=== PATIENT | female | born 1950 | race American Indian/Alaskan Native ===

== ENCOUNTER 2021-10-18 12:34 | Emergency (ER) | payer SELFPAY ==
--- NOTE | 2021-10-18 13:07 | Emergency Department Report ---
ED General Adult HPI - General Chief complaint: Weakness Stated complaint: REF BY DOC/WEAKNESS Time Seen by Provider: 10/18/21 12:53 Source: patient Mode of arrival: Ambulatory Limitations: No Limitations - History of Present Illness Initial comments: Patient presented with family secondary to generalized weakness. She had actually fallen on Monday. Patient is uncertain whether she slipped and fell or whether she fainted. She was in the kitchen. She was getting cup of ice when she fell. She states that she came to lying on the ground. She believes that she hit her head and was obviously knocked out. The cup of ice had spilled everywhere. Patient states that she crawled to their bedroom, and was able to call her . He came home and helped her get up. She states that she spent yesterday lying in bed. She was complaining of pain in the medial aspect of the right thigh. This was in the proximal area. She thought that she had just injured her leg. Unfortunately, she was not able to get up and move her leg. She states that her leg feels weak now. She called her [facility] physician and was told to come here that this could be a stroke. She states that she noticed this weakness yesterday and was told to come in yesterday. She and her decided to come in today instead. Patient has ongoing headache, although she states that the headache is improved. She denies chest pain. She has not noticed any weakness of the arms. Pain in the right medial thigh is described as aching. Severity scale (0 -10): 4 - Related Data Allergies Allergy/AdvReac Type Severity Reaction Status Date / Time cefdinir Allergy Itching Verified 10/18/21 13:12 ED Review of Systems ROS: Stated complaint: REF BY DOC/WEAKNESS Other details as noted in HPI Comment: All other systems reviewed and negative Constitutional: denies: fever Eyes: denies: vision change ENT: denies: throat pain Respiratory: denies: cough Cardiovascular: denies: chest pain Endocrine: denies: unexplained weight loss Gastrointestinal: denies: abdominal pain Genitourinary: denies: dysuria Musculoskeletal: denies: back pain Skin: denies: rash Neurological: as per HPI Hematological/Lymphatic: denies: easy bruising ED Past Medical Hx - Past Medical History Hx Hypertension: Yes - Family History Family history: hypertension ED Physical Exam - General Limitations: No Limitations, Other (Pulse ox noted and normal) General appearance: alert, in no apparent distress - Head Head exam: Present: atraumatic, normocephalic - Eye Eye exam: Present: normal appearance, EOMI. Absent: scleral icterus - ENT ENT exam: Present: normal orophraynx, normal external ear exam - Neck Neck exam: Present: normal inspection. Absent: tenderness, meningismus - Respiratory Respiratory exam: Present: normal lung sounds bilaterally. Absent: respiratory distress - Cardiovascular Cardiovascular Exam: Present: regular rate, normal rhythm - GI/Abdominal GI/Abdominal exam: Present: soft. Absent: distended, tenderness - Extremities Exam Extremities exam: Present: normal capillary refill - Back Exam Back exam: Absent: CVA tenderness (R) - Neurological Exam Neurological exam: Present: alert, oriented X3, CN II-XII intact, reflexes normal, other (Patient seems to have weakness involving the right leg at the hip flexor area. It is difficult to determine whether this is pain mediated or true weakness.) - Psychiatric Psychiatric exam: Present: normal affect, normal mood - Skin Skin exam: Present: warm, dry ED Course Vital Signs 10/18/21 10/18/21 12:54 14:05 Temperature 98.0 F Pulse Rate 98 H Respiratory 16 Rate Blood Pressure 117/45 [Left] O2 Sat by Pulse 98 98 Oximetry - Reevaluation(s) Reevaluation #1: 10/18/21 13:06 Labs, CT, and x-rays were ordered. Old records noted. Reevaluation #2: 10/18/21 14:26 EKG noted. Reevaluation #3: 10/18/21 15:41 Work-up was complete and the patient was discharged ED Medical Decision Making - Lab Data Result diagrams: 10/18/21 14:29 10/18/21 14:29 Rhythm strip: Normal sinus rhythm without ectopy. Monitor observe 10 seconds. - EKG Data -: EKG Interpreted by Me - EKG Data When compared to previous EKG there are: previous EKG unavailable 10/18/21 14:27 1421-EKG shows normal sinus rhythm at 74. Intervals are normal including QRS and QT corrected. The computer is reading a QRS of 135, but this is a narrow c omplex QRS. It is not wide. Patient does have significant artifact and wandering baseline. There is no old EKG for comparison. - Radiology Data Radiology results: report reviewed - Medical Decision Making Patient presents for a questionable stroke. She actually seemed to fall and get knocked out. There was no CT evidence of stroke. She did not have unilateral findings suggestive of stroke. Patient did not have focal weakness. She had complained that her right leg was weak but the seem to be more limited due to pain. She had pain in the musculature of the medial thigh on the right. She did not have any pronator drift. NIH score was zero. Along the same lines, there is no evidence of subdural or epidural hematoma. Has no evidence of spinal injury based on a negative CT of the C-spine. Patient does not have evid ence of pelvic fracture or hip fracture. She has no obvious metabolic derangement although her BUN was elevated. This would be consistent with some mild dehydration. She was drinking fluids here. The [facility] physician was notified who did agree with outpatient follow-up and will help arrange outp atient follow-up. Critical Care Time: No Critical care attestation.: If time is entered above; I have spent that time in minutes in the direct care o f this critically ill patient, excluding procedure time. ED Disposition Clinical Impression: Right thigh pain Syncope Qualifiers: Syncope type: unspecified Qualified Code(s): R55 - Syncope and collapse Disposition: 01 HOME / SELF CARE / HOMELESS Is pt being admited?: No Condition: Stable Instructions: Syncope (ED), How to Use Cold Therapy, [id number], Pain Without a Known Cause, Syncope Additional Instructions: Apply ice to your leg. Drink plenty water. Use Tylenol for pain. Follow-up with your family doctor and your [facility] doctor for recheck. Return for problems or concerns. Referrals: PRIMARY CARE, [Referring] - 3-5 Days
--- NOTE | 2021-10-18 13:50 | Cat Scan Report ---
CT head/brain wo con INDICATION: trauma w/loc. TECHNIQUE: Routine CT head. All CT scans at this location are performed using CT dose reduction for A NATHAN by means of automated exposure control. COMPARISON: None. FINDINGS: Intracranial: Taylor-white matter differentiation is maintained. No intracranial hemorrhage. No extra a xial collection. No hydrocephalus. No herniation. Sinuses: Paranasal sinuses and mastoid air cells are essentially clear. Orbits: Globes are intact. Calvarium: No acute fracture. IMPRESSION: 1. No acute intracranial abnormality. Signer Name: Simón Krishna MD Signed: 10/18/2021 1:45 PM Workstation Name: [id number]
--- NOTE | 2021-10-18 14:22 | XRay Report ---
CHEST 2 VIEWS INDICATION: fall. COMPARISON: None FINDINGS: SUPPORT DEVICES: None. HEART: Within normal limits. LUNGS/PLEURA: No acute air space or interstitial disease. No pneumothorax. ADDITIONAL FINDINGS: None. IMPRESSION: 1. No acute findings. Signer Name: Myron Martinez MD Signed: 10/18/2021 2:18 PM Workstation Name: [id number]
--- NOTE | 2021-10-18 14:24 | XRay Report ---
XR pelvis 1-2V INDICATION / CLINICAL INFORMATION: Fall. COMPARISON: None available. FINDINGS: Mild cortical deformity along the superior margin of the left pubic body most likely represents remot e fracture. No acute fracture is identified. The pubic symphysis and SI joints are intact. The sacrum is obscured by bowel gas and stool. Hip joints are intact with mild bilateral osteoarthritis. Signer Name: Shakeel Dumont MD Signed: 10/18/2021 2:20 PM Workstation Name: [id number]
[2021-10-18 14:59] LABS: BUN/Creatinine Ratio 27; Blood Urea Nitrogen 24 mg/dL (7-17); Calcium 9.8 mg/dL (8.4-10.2); Hemolysis Index 3
[2021-10-18 15:01] LABS: Hematocrit 32.2 % (30.3-42.9); Hemoglobin 10.5 gm/dl (10.1-14.3); Mean Corpuscular HGB Conc 33 % (30-34); Mean Corpuscular Volume 95 fl (79-97); Platelet Count 248 K/mm3 (140-440); Red Blood Count 3.41 M/mm3 (3.65-5.03)
--- NOTE | 2021-10-18 16:01 | Cat Scan Report ---
CT cervical spine wo con INDICATION / CLINICAL INFORMATION: 71 years Female; trauma w/loc. TECHNIQUE: Axial CT images of the cervical spine were obtained. Sagittal and coronal reformatted images were pr oduced. All CT scans at this location are performed using CT dose reduction for ALARA by means of aut omated exposure control. COMPARISON: None available. FINDINGS: POST-SURGICAL CHANGES: None. ALIGNMENT: There is no significant spondylolisthesis of the cervical spine. There is slight curvature of the spine, convex toward the right. VERTEBRAE: There is notable disc space narrowing with endplate changes at C4-5. Moderate findings are noted at C5-6 and mild anteriorly at C6-7. However, there is no clear CT evidence of acute fracture of the cervical spine. INTRAVERTEBRAL DISCS: The hypertrophic changes posterior to the odontoid appear to efface ventral sub arachnoid space without direct cord compression. There is a central osteophyte/disc complex at C3-4 w hich also effaces the subarachnoid space. There is mild left foraminal narrowing. The more broad-based spondylosis at C4-5 appears to minimally encroach on the ventral cord. There is moderate to marked left neural foraminal narrowing. The spondylosis at C5-6 also effaces the ventral subarachnoid space. There is moderate to marked left and moderate right foraminal narrowing. Milder narrowing is noted at C6-7. PARASPINAL SOFT TISSUES: No prevertebral soft tissue fluid collections are identified. This mild athe rosclerotic calcification involving carotid bifurcations. ADDITIONAL FINDINGS: None. IMPRESSION: 1. There is no CT evidence of acute fracture involving the cervical spine. 2. There are multilevel degenerative changes as detailed above. Signer Name: Sanjay Lilly MD Signed: 10/18/2021 3:57 PM Workstation Name: [id number]
[2021-10-18 17:14] VITALS: BP 149/70
--- NOTE | 2021-10-20 10:12 | Electrocardiograph Report ---
[facility] Test Date: 2021-10-18 Test Time: 14:21:39 Pat Name: ANN MARIE SHINE Department: Room: Gender: F Pruner: radha : 1950 Requested By: JAKE DUFFY Order Number: [id number] Reading MD: Arnaldo Toro Measurements Intervals [place] Rate: 74 P: LA: QRS: 29 QRSD: 135 T: 17 QT: 375 QTc: 430 Interpretive Statements Poor quality ECG Normal sinus rhythm No previous ECG available for comparison Electronically Signed On 10-20-2021 10:12:07 EST by Arnaldo Toro
== END 2021-10-18 16:50 | disposition home or self-care (01) ==
LOC: ED 12:34
DX: M79.651 Pain in right thigh (principal); R55 Syncope and collapse; Z88.1 Allergy status to other antibiotic agents
CPT/HCPCS: 36415; 70450; 71046; 72125; 72170; 80048; 84484; 85027; 93005; 93010; 99283